=== PATIENT | female | born 1930 | race Caucasian/White ===

== ENCOUNTER 2021-09-03 00:03 | Emergency (ER) | payer BC ==
[~2021-09-03] VITALS: Ht 154.9 cm; Wt 61.2 kg
--- NOTE | 2021-09-03 00:19 | NUR ---
PT BIB [facility] FROM HOME C/O FORHEAD LACERATION AFTER MECHANICAL FALL. A/O X3, NO SOB OR LABORED BREATHING. DENIES CP/PRESSURE. DENIES KO.
--- NOTE | 2021-09-03 00:21 | NUR ---
DR. MARINO ATR BEDSIDE, MSE IN PROGRESS.
[2021-09-03] MEDS ORDERED: LIDOCAINE 1%-EPI 1:100,000 20 ML VIAL IJ ONE (00:30)
--- NOTE | 2021-09-03 00:39 | NUR ---
PT BEING TAKEN FOR CT.
[2021-09-03] MEDS ORDERED: TDAP DIPH,PERTUSS,TET VAC/PF 0.5 ML DISP.SYRIN IM ONE ×2 (01:00→01:10)
--- NOTE | 2021-09-03 01:01 | NUR ---
PT RETURNED FROM CT.
[2021-09-03 01:37] VITALS: BP 173/98
--- NOTE | 2021-09-03 01:38 | NUR ---
Patient discharged to home in stable condition, with daughter. Written and verbal after care instructions given. Patient verbalizes understanding of instructions. Stressed follow up or return to ER for worsening s/s. Pt denies pain at this time, no distress noted. LOC unchanged for duration of visit. Pt able to ambulate. Able to follow commands.
== END 2021-09-03 01:39 | disposition home or self-care (01) ==
LOC: ER 00:07
DX: S01.82XA Laceration with foreign body of other part of head, initial encounter (principal); S60.221A Contusion of right hand, initial encounter; W01.110A Fall on same level from slipping, tripping and stumbling with subsequent striking against sharp glass, initial encounter; Y92.019 Unspecified place in single-family (private) house as the place of occurrence of the external cause; Z85.43 Personal history of malignant neoplasm of ovary; M50.30 Other cervical disc degeneration, unspecified cervical region
CPT/HCPCS: 12051; 70450; 72125; 99285; J3490; 90715; A4217; A4663